=== PATIENT | female | born 1950 | race Caucasian/White ===

== ENCOUNTER 2017-10-15 08:00 | Outpatient (CLI) | payer MEDICAID, MEDICARE ==
[2017-10-15 13:03] LABS: BASOPHILS # (AUTO) 0.1 10^3/uL (0.0-0.1); BASOPHILS % (AUTO) 0.7 %; EOSINOPHILS # (AUTO) 0.3 10^3/uL (0.0-0.7); HGB - HEMOGLOBIN 14.2 g/dL (12.0-16.0); LYMPHOCYTES # (AUTO) 2.7 10^3/uL (1.5-3.5); LYMPHOCYTES % (AUTO) 31.6 %; MEAN CORPUSCULAR HEMOGLOBIN 32.9 pg (27.0-31.0); MEAN CORPUSCULAR HGB CONC 33.9 g/dL (32.0-36.0); MEAN CORPUSCULAR VOLUME 96.9 fL (81.0-99.0); MEAN PLATELET VOLUME 8.1 fL (7.9-10.8); MONOCYTES # (AUTO) 0.7 10^3/uL (0.0-1.0); MONOCYTES % (AUTO) 8.6 %; NEUTROPHILS # (AUTO) 4.8 10^3/uL (1.5-6.6); NEUTROPHILS % (AUTO) 56.1 %; PLT - PLATELET COUNT 406 10^3/uL (130-450); RED BLOOD COUNT 4.33 10^6/uL (4.20-5.40); RED CELL DISTRIBUTION WIDTH 13.6 % (12.0-15.0); WHITE BLOOD COUNT 8.6 x10^3/uL (4.8-10.8)
[2017-10-15 13:21] LABS: HB2 TOTAL 15.1 g/dL; HEMOGLOBIN A1C 1.35 g/dL; HEMOGLOBIN A1C % 10.3 % (4.6-6.2)
[2017-10-15 13:24] LABS: ALBUMIN 4.1 g/dL (3.2-5.5); ALBUMIN/GLOBULIN RATIO 1.2 (1.0-2.2); ALKALINE PHOSPHATASE 91 IU/L (42-121); ALT ALANINE AMINOTRANSFERASE 55 IU/L (10-60); AST ASPARTATE AMINOTRANSFERASE 41 IU/L (10-42); BILIRUBIN,TOTAL 0.7 mg/dL (0.2-1.0); BUN - BLOOD UREA NITROGEN 13 mg/dL (6-20); CALCIUM 9.4 mg/dL (8.5-10.3); CARBON DIOXIDE - CO2 26 mmol/L (21-32); CHLORIDE 101 mmol/L (101-111); CHOL/HDL RATIO 3.3 (<4.4); CHOLESTEROL 176 mg/dL; CREATININE 0.6 mg/dL (0.4-1.0); GFR - MDRD 100 (>89); GLUCOSE 236 mg/dL (70-100); HDL CHOLESTEROL 54 mg/dL; LDL CHOLESTEROL,CALCULATED 97 mg/dL; LDL/HDL RATIO 1.8 (<4.4); SODIUM 135 mmol/L (135-145); TOTAL PROTEIN 7.5 g/dL (6.7-8.2); VLDL CHOLESTEROL 25 mg/dL
== END 2017-10-15 08:01 | disposition home or self-care (01) ==
LOC: LAB.N 08:00
PROVIDERS: ATTEND Nurse Practitioner Gerontology
DX: E11.9 Type 2 diabetes mellitus without complications (principal); E03.9 Hypothyroidism, unspecified
CPT/HCPCS: 36415; 80053; 80061; 83036; 83721; 84443; 85025

== ENCOUNTER 2020-09-05 08:00 | Outpatient (CLI) | payer MEDICARE ==
[2020-09-05 18:23] LABS: BASOPHILS # (AUTO) 0.1 10^3/uL (0.0-0.1); EOSINOPHILS # (AUTO) 0.2 10^3/uL (0.0-0.7); EOSINOPHILS % (AUTO) 2.1 %; HGB - HEMOGLOBIN 13.7 g/dL (12.0-16.0); LYMPHOCYTES # (AUTO) 2.9 10^3/uL (1.5-3.5); LYMPHOCYTES % (AUTO) 31.6 %; MEAN CORPUSCULAR HEMOGLOBIN 32.4 pg (27.0-31.0); MEAN CORPUSCULAR HGB CONC 31.8 g/dL (32.0-36.0); MEAN CORPUSCULAR VOLUME 101.9 fL (81.0-99.0); MEAN PLATELET VOLUME 10.2 fL (7.9-10.8); MONOCYTES # (AUTO) 0.7 10^3/uL (0.0-1.0); MONOCYTES % (AUTO) 7.4 %; NEUTROPHILS # (AUTO) 5.3 10^3/uL (1.5-6.6); NEUTROPHILS % (AUTO) 57.6 %; PLT - PLATELET COUNT 411 10^3/uL (130-450); RED BLOOD COUNT 4.23 10^6/uL (4.20-5.40); RED CELL DISTRIBUTION WIDTH 12.1 % (12.0-15.0); WHITE BLOOD COUNT 9.2 x10^3/uL (4.8-10.8)
[2020-09-05 18:24] LABS: CREATININE,URINE 43.9 mg/dL; MICROALBUM/CREATININE RATIO,UR 6.8 ug/mg (<30.0); MICROALBUMIN,URINE 0.3 mg/dL (0-300.0)
[2020-09-05 18:50] LABS: ALBUMIN/GLOBULIN RATIO 1.1 (1.0-2.2); ALKALINE PHOSPHATASE 95 IU/L (42-121); ALT ALANINE AMINOTRANSFERASE 31 IU/L (10-60); AST ASPARTATE AMINOTRANSFERASE 26 IU/L (10-42); BILIRUBIN,TOTAL 0.4 mg/dL (0.2-1.0); BUN - BLOOD UREA NITROGEN 13 mg/dL (6-20); CALCIUM 9.3 mg/dL (8.5-10.3); CARBON DIOXIDE - CO2 27 mmol/L (21-32); CHLORIDE 101 mmol/L (101-111); CHOLESTEROL 192 mg/dL; CREATININE 0.6 mg/dL (0.4-1.0); GLUCOSE 232 mg/dL (70-100); HDL CHOLESTEROL 64 mg/dL; LDL CHOLESTEROL,CALCULATED 94 mg/dL; LDL/HDL RATIO 1.5 (<4.4); TOTAL PROTEIN 7.5 g/dL (6.7-8.2); VLDL CHOLESTEROL 34 mg/dL
[2020-09-05 19:24] LABS: FREE T4 (FREE THYROXINE) 1.4 ng/dL (0.58-1.64)
[2020-09-05 20:32] LABS: HEMOGLOBIN A1c% 11.3 % (4.27-6.07)
== END 2020-09-05 23:59 | disposition home or self-care (01) ==
LOC: LAB.WCP 08:00
PROVIDERS: ATTEND Nurse Practitioner Family
DX: E11.9 Type 2 diabetes mellitus without complications (principal); Z13.220 Encounter for screening for lipoid disorders; E03.9 Hypothyroidism, unspecified
CPT/HCPCS: 36415; 80053; 80061; 82043; 82570; 83036; 83721; 84439; 84443; 85025

== ENCOUNTER 2021-10-15 12:41 | Outpatient (CLI) | payer MEDICARE ==
[2021-10-15 18:07] LABS: BASOPHILS # (AUTO) 0.1 10^3/uL (0.0-0.1); BASOPHILS % (AUTO) 0.9 %; EOSINOPHILS # (AUTO) 0.2 10^3/uL (0.0-0.7); EOSINOPHILS % (AUTO) 2.2 %; HCT - HEMATOCRIT 41.4 % (37.0-47.0); HGB - HEMOGLOBIN 13.7 g/dL (12.0-16.0); LYMPHOCYTES # (AUTO) 2.8 10^3/uL (1.5-3.5); LYMPHOCYTES % (AUTO) 31.4 %; MEAN CORPUSCULAR HEMOGLOBIN 32.5 pg (27.0-31.0); MEAN CORPUSCULAR HGB CONC 33.1 g/dL (32.0-36.0); MEAN CORPUSCULAR VOLUME 98.3 fL (81.0-99.0); MEAN PLATELET VOLUME 10.2 fL (7.9-10.8); MONOCYTES # (AUTO) 0.7 10^3/uL (0.0-1.0); MONOCYTES % (AUTO) 7.3 %; NEUTROPHILS # (AUTO) 5.2 10^3/uL (1.5-6.6); PLT - PLATELET COUNT 406 10^3/uL (130-450); RED BLOOD COUNT 4.21 10^6/uL (4.20-5.40); RED CELL DISTRIBUTION WIDTH 12.6 % (12.0-15.0)
[2021-10-15 18:17] LABS: ALBUMIN 4.1 g/dL (3.2-5.5); ALBUMIN/GLOBULIN RATIO 1.3 (1.0-2.2); ALKALINE PHOSPHATASE 86 IU/L (42-121); ALT ALANINE AMINOTRANSFERASE 26 IU/L (10-60); AST ASPARTATE AMINOTRANSFERASE 20 IU/L (10-42); BILIRUBIN,TOTAL 0.7 mg/dL (0.2-1.0); BUN - BLOOD UREA NITROGEN 13 mg/dL (6-20); CALCIUM 9.1 mg/dL (8.5-10.3); CARBON DIOXIDE - CO2 27 mmol/L (21-32); CHLORIDE 98 mmol/L (101-111); CHOL/HDL RATIO 2.9 (<4.4); CHOLESTEROL 191 mg/dL; CREATININE 0.7 mg/dL (0.4-1.0); GFR - MDRD 83 (>89); GLUCOSE 299 mg/dL (70-100); HDL CHOLESTEROL 65 mg/dL; LDL CHOLESTEROL,CALCULATED 102 mg/dL; LDL/HDL RATIO 1.6 (<4.4); POTASSIUM 3.8 mmol/L (3.5-5.0); SODIUM 135 mmol/L (135-145); TOTAL PROTEIN 7.3 g/dL (6.7-8.2); TRIGLYCERIDES 118 mg/dL; VLDL CHOLESTEROL 24 mg/dL
[2021-10-15 18:38] LABS: THYROID STIMULATING HORMONE 10.95 uIU/mL (0.34-5.60)
[2021-10-15 19:22] LABS: FREE T4 (FREE THYROXINE) 0.84 ng/dL (0.58-1.64)
[2021-10-15 20:50] LABS: ESTIMATED AVERAGE GLUCOSE 326 mg/dL (70-100)
== END 2021-10-15 12:42 | disposition home or self-care (01) ==
LOC: LAB.N 12:41
PROVIDERS: ATTEND Physician Assistant
DX: E11.9 Type 2 diabetes mellitus without complications (principal); Z13.220 Encounter for screening for lipoid disorders; E03.9 Hypothyroidism, unspecified; Z13.9 Encounter for screening, unspecified
CPT/HCPCS: 36415; 80053; 80061; 82043; 83036; 83721; 84439; 84443; 85025

== ENCOUNTER 2023-05-13 10:03 | Outpatient (CLI) | payer MEDICARE ==
[2023-05-13 10:30] LABS: BASOPHILS % (AUTO) 0.5 %; EOSINOPHILS # (AUTO) 0.5 10^3/uL (0.0-0.7); EOSINOPHILS % (AUTO) 6.1 %; HCT - HEMATOCRIT 42.6 % (37.0-47.0); HGB - HEMOGLOBIN 14.2 g/dL (12.0-16.0); LYMPHOCYTES # (AUTO) 2.3 10^3/uL (1.5-3.5); LYMPHOCYTES % (AUTO) 27.7 %; MEAN CORPUSCULAR HEMOGLOBIN 32.1 pg (27.0-31.0); MEAN CORPUSCULAR HGB CONC 33.3 g/dL (32.0-36.0); MEAN CORPUSCULAR VOLUME 96.4 fL (81.0-99.0); MEAN PLATELET VOLUME 9.1 fL (7.9-10.8); MONOCYTES # (AUTO) 0.6 10^3/uL (0.0-1.0); MONOCYTES % (AUTO) 6.9 %; NEUTROPHILS # (AUTO) 4.8 10^3/uL (1.5-6.6); NEUTROPHILS % (AUTO) 58.6 %; PLT - PLATELET COUNT 400 10^3/uL (130-450); RED BLOOD COUNT 4.42 10^6/uL (4.20-5.40); RED CELL DISTRIBUTION WIDTH 12.2 % (12.0-15.0); WHITE BLOOD COUNT 8.2 x10^3/uL (4.8-10.8)
[2023-05-13 10:52] LABS: ALBUMIN 4.2 g/dL (3.2-5.5); ALBUMIN/GLOBULIN RATIO 1.4 (1.0-2.2); ALKALINE PHOSPHATASE 98 IU/L (42-121); ALT ALANINE AMINOTRANSFERASE 19 IU/L (10-60); AST ASPARTATE AMINOTRANSFERASE 18 IU/L (10-42); BILIRUBIN,TOTAL 0.6 mg/dL (0.2-1.0); BUN - BLOOD UREA NITROGEN 19 mg/dL (6-20); CALCIUM 9.4 mg/dL (8.5-10.3); CARBON DIOXIDE - CO2 30 mmol/L (21-32); CHLORIDE 102 mmol/L (101-111); CHOLESTEROL 175 mg/dL; CREATININE 0.6 mg/dL (0.6-1.3); GFR - MDRD 98 (>89); GLUCOSE 282 mg/dL (74-104); HDL CHOLESTEROL 59 mg/dL; LDL CHOLESTEROL,CALCULATED 96 mg/dL; LDL/HDL RATIO 1.6 (<4.4); POTASSIUM 4.3 mmol/L (3.5-4.5); SODIUM 138 mmol/L (135-145); TOTAL PROTEIN 7.1 g/dL (6.4-8.9); TRIGLYCERIDES 100 mg/dL (48-352); VLDL CHOLESTEROL 20 mg/dL
[2023-05-13 10:53] LABS: CREATININE,URINE 128.8 mg/dL; MICROALBUM/CREATININE RATIO,UR 11.6 ug/mg (<30.0); MICROALBUMIN,URINE 1.5 mg/dL
[2023-05-13 10:59] LABS: ESTIMATED AVERAGE GLUCOSE 309 mg/dL (70-100); HEMOGLOBIN A1c% 12.4 % (4.27-6.07)
[2023-05-13 11:02] LABS: THYROID STIMULATING HORMONE 7.62 uIU/mL (0.34-5.60)
== END 2023-05-13 10:04 | disposition home or self-care (01) ==
LOC: LAB 10:03
PROVIDERS: ATTEND Physician Assistant
DX: E11.9 Type 2 diabetes mellitus without complications (principal)
CPT/HCPCS: 36415; 80053; 80061; 82043; 82570; 83036; 83721; 84439; 84443; 85025

== ENCOUNTER 2023-08-19 11:31 | Outpatient (CLI) | payer MEDICARE ==
[2023-08-19 18:06] LABS: CALCIUM 9.3 mg/dL (8.5-10.3); CREATININE 0.7 mg/dL (0.6-1.3); POTASSIUM 4.3 mmol/L (3.5-4.5)
[2023-08-19 21:31] LABS: ESTIMATED AVERAGE GLUCOSE 189 mg/dL (70-100); HEMOGLOBIN A1c% 8.2 % (4.27-6.07)
== END 2023-08-19 11:32 | disposition home or self-care (01) ==
LOC: LAB.N 11:31
PROVIDERS: ATTEND Physician Assistant
DX: E11.65 Type 2 diabetes mellitus with hyperglycemia (principal)
CPT/HCPCS: 36415; 80048; 83036

== ENCOUNTER 2023-12-10 09:59 | Outpatient (CLI) | payer MEDICARE ==
[2023-12-10 10:12] LABS: BASOPHILS # (AUTO) 0.1 10^3/uL (0.0-0.1); BASOPHILS % (AUTO) 0.8 %; EOSINOPHILS # (AUTO) 0.4 10^3/uL (0.0-0.7); EOSINOPHILS % (AUTO) 4.6 %; HGB - HEMOGLOBIN 12.6 g/dL (12.0-16.0); LYMPHOCYTES # (AUTO) 2.3 10^3/uL (1.5-3.5); LYMPHOCYTES % (AUTO) 29.2 %; MEAN CORPUSCULAR HEMOGLOBIN 31.8 pg (27.0-31.0); MEAN CORPUSCULAR HGB CONC 32.3 g/dL (32.0-36.0); MEAN CORPUSCULAR VOLUME 98.5 fL (81.0-99.0); MEAN PLATELET VOLUME 8.9 fL (7.9-10.8); MONOCYTES # (AUTO) 0.7 10^3/uL (0.0-1.0); MONOCYTES % (AUTO) 9.3 %; NEUTROPHILS # (AUTO) 4.5 10^3/uL (1.5-6.6); PLT - PLATELET COUNT 417 10^3/uL (130-450); RED BLOOD COUNT 3.96 10^6/uL (4.20-5.40); RED CELL DISTRIBUTION WIDTH 12.8 % (12.0-15.0)
[2023-12-10 10:29] LABS: ALBUMIN/GLOBULIN RATIO 1.3 (1.0-2.2); ALKALINE PHOSPHATASE 76 IU/L (42-121); ALT ALANINE AMINOTRANSFERASE 18 IU/L (10-60); AST ASPARTATE AMINOTRANSFERASE 19 IU/L (10-42); BILIRUBIN,TOTAL 0.6 mg/dL (0.2-1.0); BUN - BLOOD UREA NITROGEN 13 mg/dL (6-20); CALCIUM 9.6 mg/dL (8.5-10.3); CARBON DIOXIDE - CO2 30 mmol/L (21-32); CHLORIDE 102 mmol/L (101-111); CHOL/HDL RATIO 2.7 (<4.4); CHOLESTEROL 153 mg/dL; CREATININE 0.7 mg/dL (0.6-1.3); GFR - MDRD 82 (>89); GLUCOSE 184 mg/dL (74-104); HDL CHOLESTEROL 56 mg/dL; LDL CHOLESTEROL,CALCULATED 75 mg/dL; LDL/HDL RATIO 1.3 (<4.4); POTASSIUM 4.2 mmol/L (3.5-4.5); SODIUM 138 mmol/L (135-145); TOTAL PROTEIN 7.2 g/dL (6.4-8.9); TRIGLYCERIDES 111 mg/dL (48-352); VLDL CHOLESTEROL 22 mg/dL
[2023-12-10 10:30] LABS: CREATININE,URINE 24.8 mg/dL
[2023-12-10 10:31] LABS: MICROALBUMIN,URINE < 0.7 mg/dL
[2023-12-10 10:44] LABS: THYROID STIMULATING HORMONE 10.72 uIU/mL (0.34-5.60)
[2023-12-10 10:55] LABS: ESTIMATED AVERAGE GLUCOSE 206 mg/dL (70-100); HEMOGLOBIN A1c% 8.8 % (4.27-6.07)
== END 2023-12-10 10:00 | disposition home or self-care (01) ==
LOC: LAB 09:59
PROVIDERS: ATTEND Physician Assistant
DX: E11.65 Type 2 diabetes mellitus with hyperglycemia (principal)
CPT/HCPCS: 36415; 80053; 80061; 82043; 82570; 83036; 83721; 84439; 84443; 85025

== ENCOUNTER 2023-12-23 17:32 | Outpatient (CLI) | payer MEDICARE ==
--- NOTE | 2023-12-24 11:26 | XRAY Report ---
PROCEDURE: Tib/Fib RT INDICATIONS: LOCALIZED SWELLING ON LOWER RIGHT LEG/LEG PAIN TECHNIQUE: 2 views of the tibia and fibula were acquired. COMPARISON: None. FINDINGS: Bones: Suspected minimally displaced intra-articular distal tibial fracture. Posterior calcaneal ent hesophyte. Soft tissues: Nonspecific soft tissue edema at the lower leg. IMPRESSION: Suspected nondisplaced intra-articular fracture of the distal tibia. Reviewed by: Thien Gallegos MD on 12/24/2023 11:25 AM PDT Approved by: Thien Gallegos MD on 12/24/2023 11:25 AM PDT Station ID: [id number]
--- NOTE | 2023-12-24 11:27 | XRAY Report ---
PROCEDURE: Ankle 3+V RT INDICATIONS: ANKLE JOINT PAIN,RIGHT TECHNIQUE: 3 views of the ankle were acquired. COMPARISON: None. FINDINGS: Bones: Minimally displaced intra-articular fractures of the medial and posterior malleoli. Distal fi bular fracture is not definitely seen. Small posterior calcaneal enthesophyte. Soft tissues: Soft tissue edema seen surrounding the ankle. IMPRESSION: Minimally displaced intra-articular fractures of the medial malleolus and posterior malleolus. No def inite distal tibial fracture. Reviewed by: Thien Gallegos MD on 12/24/2023 11:26 AM PDT Approved by: Thien Gallegos MD on 12/24/2023 11:26 AM PDT Station ID: [id number]
--- NOTE | 2023-12-24 11:28 | XRAY Report ---
PROCEDURE: Foot 3+V RT INDICATIONS: ACUTE LEG PAIN TECHNIQUE: 3 views of the foot were acquired. COMPARISON: None. FINDINGS: Bones: Minimally displaced intra-articular fractures of the medial malleolus and posterior malleolus of the distal tibia. No definite tibial fracture is seen. No midfoot or forefoot fracture. Suspicious bony lesions. Soft tissues: Nonspecific subcutaneous edema is present. IMPRESSION: Minimally displaced intra-articular fractures of the medial and posterior malleoli of the distal tibi a. Reviewed by: Thien Gallegos MD on 12/24/2023 11:27 AM PDT Approved by: Thien Gallegos MD on 12/24/2023 11:27 AM PDT Station ID: [id number]
== END 2023-12-23 17:33 | disposition home or self-care (01) ==
LOC: DI 17:32
PROVIDERS: ATTEND Nurse Practitioner Family
DX: S82.51XA Displaced fracture of medial malleolus of right tibia, initial encounter for closed fracture (principal); Z91.81 History of falling

== ENCOUNTER 2023-12-29 09:20 | Outpatient (CLI) | payer MEDICARE ==
--- NOTE | 2023-12-29 11:15 | XRAY Report ---
PROCEDURE: Ankle 3+V RT INDICATIONS: FRACTURE OF MEDIAL MALLEOLUS OF RIGHT TIBIA TECHNIQUE: 3 views of the ankle were acquired. COMPARISON: 12/23/2023. FINDINGS: Bones: Again noted is nondisplaced fracture through medial aspect of distal tibia/base of medial mal leolus with fracture line extending to tibiotalar joint space. No new fracture or dislocation. Mild m idfoot and hindfoot joint osteophytic changes are seen. Dorsal calcaneal enthesophyte is Ankle mortis e is normally aligned. No suspicious bony lesions. Soft tissues: There is diffuse ankle soft tissue swelling. No tibiotalar joint effusion. Achilles te ndon appears normal. IMPRESSION: Acute to subacute appearing nondisplaced fracture through base of medial malleolus with fracture line extending to tibial talar joint space. No new fracture or dislocation. Diffuse ankle soft tissue swe lling. Dorsal calcaneal enthesophyte. Reviewed by: Yakov Strange MD on 12/29/2023 11:14 AM PDT Approved by: Yakov Strange MD on 12/29/2023 11:14 AM PDT Station ID: [id number]
== END 2023-12-29 09:21 | disposition home or self-care (01) ==
LOC: DI 09:20
PROVIDERS: ATTEND Orthopaedic Surgery
DX: S82.54XD Nondisplaced fracture of medial malleolus of right tibia, subsequent encounter for closed fracture with routine healing (principal); M77.31 Calcaneal spur, right foot

== ENCOUNTER 2024-01-04 11:14 | Outpatient (CLI) | payer MEDICARE ==
--- NOTE | 2024-01-04 16:15 | XRAY Report ---
PROCEDURE: Ankle 1-2V RT INDICATIONS: MEDIAL MALLEOLUS OF RIGHT TIBIA TECHNIQUE: 2 views of the ankle were acquired. COMPARISON: 12/29/2023, 12/23/2023. FINDINGS: Bones: There is nondisplaced or minimally displaced fracture through base of medial malleolus not si gnificantly changed in overall appearance compared to previous study. No new fracture or dislocation. Ankle mortise is normally aligned. No suspicious bony lesions. Soft tissues: No tibiotalar joint effusion. Achilles tendon appears normal. IMPRESSION: Nondisplaced or minimally displaced fracture through base of medial malleolus. No new fra cture or dislocation. Ankle mortise is congruent. Reviewed by: Yakov Strange MD on 01/04/2024 4:14 PM PDT Approved by: Yakov Strange MD on 01/04/2024 4:14 PM PDT Station ID: [id number]
== END 2024-01-04 11:15 | disposition home or self-care (01) ==
LOC: DI 11:14
PROVIDERS: ATTEND Orthopaedic Surgery
DX: S82.54XA Nondisplaced fracture of medial malleolus of right tibia, initial encounter for closed fracture (principal)

== ENCOUNTER 2024-01-31 13:24 | Outpatient (CLI) | payer MEDICARE ==
--- NOTE | 2024-01-31 22:42 | XRAY Report ---
PROCEDURE: Ankle 3+V RT INDICATIONS: NONDISPLACED FRACTURE OF MEDIAL MALLEOLUS OF RIGHT TECHNIQUE: 3 views of the ankle were acquired. COMPARISON: Right ankle radiograph on January 04, 2024. FINDINGS: Bones: Interval callus formation of mildly displaced fracture of the medial malleolus with intra-art icular extension. Fracture plane remains conspicuous. Stable alignment. Ankle mortise is normally ali gned. No suspicious bony lesions. Soft tissues: No tibiotalar joint effusion. Achilles tendon appears normal. Tiny Achilles calcanea l enthesophyte. IMPRESSION: Interval osseous healing of mildly displaced, intra-articular fracture of the medial malleolus. Stabl e alignment. Reviewed by: Laura Barkley MD on 01/31/2024 10:41 PM PDT Approved by: Laura Barkley MD on 01/31/2024 10:41 PM PDT Station ID: [id number]
== END 2024-01-31 13:25 | disposition home or self-care (01) ==
LOC: DI 13:24
PROVIDERS: ATTEND Orthopaedic Surgery
DX: S82.51XD Displaced fracture of medial malleolus of right tibia, subsequent encounter for closed fracture with routine healing (principal)

== ENCOUNTER 2024-03-06 13:52 | Outpatient (CLI) | payer MEDICARE ==
--- NOTE | 2024-03-06 18:56 | XRAY Report ---
PROCEDURE: Ankle 3+V RT INDICATIONS: NONDISPLACED FX OF MEDIAL MALLEOLUS OF RT TIBIA TECHNIQUE: 3 views of the ankle were acquired. COMPARISON: 01/31/2024 FINDINGS: Bones: Continued healing of nondisplaced medial malleolar fracture with decreased conspicuity of the fracture line. Ankle mortise is normally aligned. No suspicious bony lesions. Soft tissues: No tibiotalar joint effusion. Achilles tendon appears normal. IMPRESSION: Continued healing of medial malleolar fracture. Reviewed by: Carlton Oshea MD on 03/06/2024 6:54 PM PDT Approved by: Carlton Oshea MD on 03/06/2024 6:54 PM PDT Station ID: [id number]
== END 2024-03-06 13:53 | disposition home or self-care (01) ==
LOC: DI 13:52
PROVIDERS: ATTEND Orthopaedic Surgery
DX: S82.54XD Nondisplaced fracture of medial malleolus of right tibia, subsequent encounter for closed fracture with routine healing (principal)

== ENCOUNTER 2024-03-10 11:04 | Outpatient (CLI) | payer MEDICARE ==
[2024-03-10 11:20] LABS: ESTIMATED AVERAGE GLUCOSE 163 mg/dL (70-100); HEMOGLOBIN A1c% 7.3 % (4.27-6.07)
[2024-03-10 11:27] LABS: CALCIUM 9.4 mg/dL (8.5-10.3); CREATININE 0.7 mg/dL (0.6-1.3); POTASSIUM 4.2 mmol/L (3.5-4.5)
[2024-03-10 11:45] LABS: THYROID STIMULATING HORMONE 5.69 uIU/mL (0.34-5.60)
== END 2024-03-10 11:05 | disposition home or self-care (01) ==
LOC: LAB 11:04
PROVIDERS: ATTEND Physician Assistant
DX: E11.65 Type 2 diabetes mellitus with hyperglycemia (principal); R94.6 Abnormal results of thyroid function studies
CPT/HCPCS: 36415; 80048; 83036; 84439; 84443; 84481